=== PATIENT | female | born 1980 | race Caucasian/White ===

== ENCOUNTER 2019-01-09 20:19 | Emergency (ER) | payer OTHER ==
[2019-01-09 20:49] VITALS: BP 123/79; PULSE 72; TEMP 98.5
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
--- NOTE | 2019-01-09 22:13 | ED ---
Lower Extremity Injury HPI - General Chief Complaint: Extremity Injury, Lower Stated Complaint: Ankle injury Time Seen by Provider: 01/09/19 20:58 Source: patient Mode of arrival: wheelchair Limitations: physical limitation - History of Present Illness Initial Comments: Patient is a 38-year-old female who is presenting to the emergency Department with complaints of right ankle pain x today. Patient states she went to step up onto her truck when her right foot slipped and twisted. Patient has pain and swelling on the outside of her right ankle. Patient states she has sprained that same ankle in the past before. Patient denies fractures of the ankle in the past. Patient denies any numbness and tingling into the extremity. Patient did apply ice to the injury and increase in the swelling so she decided to be seen. Patient denies any other injuries at this time. - Related Data Home Medications Medication Instructions Recorded Confirmed Ibuprofen [Motrin Ib] 400 mg PO ONCE PRN 01/09/19 01/09/19 Allergies Allergy/AdvReac Type Severity Reaction Status Date / Time vancomycin Allergy Rash/Hives Verified 01/09/19 21:02 Review of Systems ROS Statement: Those systems with pertinent positive or pertinent negative responses have been documented in the HPI. ROS Other: All systems not noted in ROS Statement are negative. Past Medical History Past Medical History: No Reported History Additional Past Medical History / Comment(s): ABNORMAL PAP SMEAR History of Any Multi-Drug Resistant Organisms: MRSA Date of last positivie culture/infection: 04-07-14 MDRO Source:: RT GROIN AREA Additional Past Surgical History / Comment(s): D&C, I & D RT INGUINAL ABSCESS, Past Anesthesia/Blood Transfusion Reactions: No Reported Reaction Past Psychological History: No Psychological Hx Reported Smoking Status: Current every day smoker Past Alcohol Use History: None Reported Past Drug Use History: None Reported - Past Family History Mother Family Medical History: Hypertension Additional Family Medical History / Comment(s): father diabetic and brother has seizures General Exam - General Exam Comments Initial Comments: GENERAL: Well-appearing, well-nourished and in no acute distress. HEAD: Atraumatic, normocephalic. EYES: Pupils equal round and reactive to light, extraocular movements intact, sclera anicteric, conjunctiva are normal. ENT: TMs normal, nares patent, oropharynx clear without exudates. Moist mucous membranes. NECK: Normal range of motion, supple without lymphadenopathy or JVD. LUNGS: Breath sounds clear to auscultation bilaterally and equal. No wheezes rales or rhonchi. HEART: Regular rate and rhythm without murmurs, rubs or gallops. ABDOMEN: Soft, nontender, normoactive bowel sounds. No guarding, no rebound. No masses appreciated. : Deferred EXTREMITIES: Patient has pain in the lateral aspect of the right ankle as well as mild to moderate swelling. No erythema or deformity seen. She is neurovascular intact. Range of motion of the right ankle and toes are within normal limits. NEUROLOGICAL: Cranial nerves II through XII grossly intact. Normal speech. PSYCH: Normal mood, normal affect. SKIN: Warm, Dry, normal turgor, no rashes or lesions noted. Limitations: physical limitation Course Vital Signs 01/09/19 01/09/19 20:47 22:22 Temperature 98.5 F Pulse Rate 72 Respiratory 16 18 Rate Blood Pressure 123/79 O2 Sat by Pulse 98 Oximetry Medical Decision Making - Medical Decision Making Patient is a 38-year-old female who presents with right ankle pain times today. Patient slipped trying into her vehicle and twisted her right ankle. On exam patient has tenderness of the lateral right ankle as well as moderate swelling. X-rays of the right ankle revealed no acute fractures or dislocations. Patient was counseled on ankle sprains and does have a lace up brace at home that she will use. Patient will be discharged home. Return parameters were discussed with patient she verbalized understanding. Disposition Clinical Impression: Right ankle sprain Disposition: HOME SELF-CARE Condition: Stable Instructions (If sedation given, give patient instructions): Ankle Sprain (ED) Additional Instructions: Please return to the Emergency Department if symptoms worsen or any other concerns. Continue with ice, compression, bracing for support. Take Motrin for pain relief. Is patient prescribed a controlled substance at d/c from ED?: No Referrals: None,Stated [Primary Care Provider] - 1-2 days
[2019-01-09 22:23] VITALS: RESP 18
== END 2019-01-09 22:23 | disposition home or self-care (01) ==
LOC: EC 20:19
DX: S93.401A Sprain of unspecified ligament of right ankle, initial encounter (principal); F17.200 Nicotine dependence, unspecified, uncomplicated; Z88.1 Allergy status to other antibiotic agents; X50.9XXA Other and unspecified overexertion or strenuous movements or postures, initial encounter
CPT/HCPCS: 99283

== ENCOUNTER 2022-10-05 13:40 | Emergency (ER) | payer OTHER ==
[2022-10-05 13:48] VITALS: PULSE 82; RESP 18; TEMP 98
[2022-10-05] MEDS ORDERED: MORPHINE SULFATE 4 MG/ML SYRINGE IVP STA ×2 (13:56→15:39)
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
[2022-10-05] MEDS ORDERED: ACET/COD 300 MG/30 MG STARTER PACK 6 TAB BTL PO STA (15:39)
[2022-10-05 16:01] VITALS: BP 122/84
== END 2022-10-05 16:00 | disposition home or self-care (01) ==
LOC: EC 13:40
DX: S00.93XA Contusion of unspecified part of head, initial encounter (principal); F17.200 Nicotine dependence, unspecified, uncomplicated; V89.2XXA Person injured in unspecified motor-vehicle accident, traffic, initial encounter; Y92.410 Unspecified street and highway as the place of occurrence of the external cause
CPT/HCPCS: 72125; 70450; 99285; 96374; 96376; J2270